=== PATIENT | male | born 1985 | race Caucasian/White ===

== ENCOUNTER → 2020-03-08 15:48 | Outpatient (CLI) | payer BC, SELFPAY ==
[2020-03-08 18:16] LABS: Alanine Aminotransferase 79 U/L (12-78); Albumin Level 4.9 g/dl (3.5-5.0); Albumin/Globulin Ratio 1.6 (1.1-1.8); Alkaline Phosphatase 126 U/L (38-126); Anion Gap 18.9 mEq/L (5-15); Aspartate Amino Transferase 55 U/L (17-59); Bilirubin,Total 0.6 mg/dl (0.2-1.3); Blood Urea Nitrogen 16 mg/dl (9-20); Calcium 10.1 mg/dl (8.4-10.2); Carbon Dioxide 23 mmol/L (22.0-30.0); Chloride 103 mmol/L (98-107); Chol/HDL Ratio 3.2 (1-3.5); Cholesterol 191 mg/dl (140-200); Estimated Glomerular Filt Rate 156 ml/min (>60); GFR (African American) 189 ML/MIN (>60); Globulin 3.1 g/dL (1.3-3.2); Glucose 130 mg/dl (74-100); HDL Cholesterol 59 mg/dl (40-60); Potassium 3.9 mmoL/L (3.5-5.1); Sodium 141 mmol/L (136-145); Triglycerides 104 mg/dl (30-150); VLDL Cholesterol 21 mg/dL (0-40)
[2020-03-08 18:26] LABS: Direct LDL Cholesterol 122.25 mg/dL (100-129)
[2020-03-08 20:11] LABS: Hemoglobin A1C 9.9 % (4.0-6.0)
== END ==
PROVIDERS: Visit Provider Family Medicine
DX: E11.9 Type 2 diabetes mellitus without complications (principal); Z79.4 Long term (current) use of insulin
CPT/HCPCS: 80053; 80061; 83036

== ENCOUNTER → 2020-05-31 17:44 | Outpatient (CLI) | payer BC, SELFPAY ==
[2020-05-31 18:48] LABS: Hemoglobin A1C 10.3 % (4.0-6.0)
== END ==
PROVIDERS: Visit Provider Family Medicine
DX: E13.9 Other specified diabetes mellitus without complications; Z79.4 Long term (current) use of insulin
CPT/HCPCS: 83036

== ENCOUNTER → 2020-09-03 14:17 | Outpatient (CLI) | payer BC, SELFPAY ==
[2020-09-03 15:10] LABS: Creatinine,Urine Random 64 mg/dL (Not Estab.)
[2020-09-03 15:11] LABS: Microalbumin/Creatinine Ratio 13.2
[2020-09-03 15:14] LABS: Basophils # 0.1 K/mm3 (0-0.2); Basophils % 1.3 % (0.1-2.0); Eosinophils # 0.3 K/mm3 (0.0-0.4); Eosinophils % 3.6 % (0.1-12.0); Hematocrit 45.7 % (42.0-52.0); Hemoglobin 15.1 g/dL (14.1-18.0); Lymphocytes # 1.8 K/mm3 (0.7-4.5); Lymphocytes % 25.2 % (10-50); Mean Corpuscular HGB Conc 33.1 g/dL (31.8-35.4); Mean Corpuscular Hemoglobin 29.3 pg (27.0-31.2); Mean Corpuscular Volume 88.4 fl (80-94); Mean Platelet Volume 9.6 fl (7.4-10.4); Monocytes # 0.5 K/mm3 (0.1-1.0); Monocytes % 6.3 % (1.7-9.3); Neutrophils # 4.6 K/mm3 (1.8-7.8); Neutrophils % 63.6 % (37.0-80.0); Platelet Count 234 K/mm3 (142-424); Red Blood Count 5.16 M/mm3 (4.60-6.20); White Blood Count 7.3 K/mm3 (4.8-10.8)
[2020-09-03 15:21] LABS: Alanine Aminotransferase 75 U/L (12-78); Albumin Level 4.5 g/dl (3.5-5.0); Albumin/Globulin Ratio 1.5 (1.1-1.8); Alkaline Phosphatase 111 U/L (38-126); Anion Gap 14.6 mEq/L (5-15); Aspartate Amino Transferase 65 U/L (17-59); Bilirubin,Total 0.4 mg/dl (0.2-1.3); Blood Urea Nitrogen 15 mg/dl (9-20); Calcium 9.7 mg/dl (8.4-10.2); Carbon Dioxide 28 mmol/L (22.0-30.0); Chloride 96 mmol/L (98-107); Cholesterol 190 mg/dl (140-200); Estimated Glomerular Filt Rate 155 ml/min (>60); GFR (African American) 188 ML/MIN (>60); Glucose 377 mg/dl (74-100); HDL Cholesterol 64 mg/dl (40-60); Potassium 4.6 mmoL/L (3.5-5.1); Sodium 134 mmol/L (136-145); Total Protein,Serum 7.5 g/dl (6.3-8.2); Triglycerides 89 mg/dl (30-150); VLDL Cholesterol 18 mg/dL (0-40)
[2020-09-03 15:36] LABS: Hemoglobin A1C 10.8 % (4.0-6.0)
[2020-09-03 15:51] LABS: Thyroid Stimulating Hormone 2.74 uIU/mL (0.465-4.68)
== END ==
PROVIDERS: Visit Provider Family Medicine
DX: E13.9 Other specified diabetes mellitus without complications (principal); I10 Essential (primary) hypertension; Z79.899 Other long term (current) drug therapy
CPT/HCPCS: 80053; 80061; 82043; 82570; 83036; 84443; 85025

== ENCOUNTER → 2021-02-28 13:11 | Outpatient (CLI) | payer BC, SELFPAY ==
[2021-02-28 13:36] LABS: Basophils # 0.1 K/mm3 (0-0.2); Basophils % 1.8 % (0.1-2.0); Eosinophils # 0.3 K/mm3 (0.0-0.4); Eosinophils % 3.2 % (0.1-12.0); Hematocrit 43.8 % (42.0-52.0); Hemoglobin 15.2 g/dL (14.1-18.0); Lymphocytes # 2.2 K/mm3 (0.7-4.5); Lymphocytes % 26.9 % (10-50); Mean Corpuscular HGB Conc 34.7 g/dL (31.8-35.4); Mean Corpuscular Hemoglobin 29.1 pg (27.0-31.2); Mean Corpuscular Volume 83.9 fl (80-94); Mean Platelet Volume 9.7 fl (7.4-10.4); Monocytes # 0.5 K/mm3 (0.1-1.0); Monocytes % 5.8 % (1.7-9.3); Neutrophils # 5.1 K/mm3 (1.8-7.8); Neutrophils % 62.3 % (37.0-80.0); Platelet Count 244 K/mm3 (142-424); Red Blood Count 5.23 M/mm3 (4.60-6.20); Red Cell Distribution Width 14.4 % (11.5-17.5); White Blood Count 8.1 K/mm3 (4.8-10.8)
[2021-02-28 14:18] LABS: Alanine Aminotransferase 39 U/L (12-78); Albumin Level 4.7 g/dl (3.5-5.0); Albumin/Globulin Ratio 1.7 (1.1-1.8); Alkaline Phosphatase 151 U/L (38-126); Anion Gap 16.5 mEq/L (5-15); Aspartate Amino Transferase 23 U/L (17-59); Bilirubin,Total 0.5 mg/dl (0.2-1.3); Blood Urea Nitrogen 15 mg/dl (9-20); Calcium 9.6 mg/dl (8.4-10.2); Carbon Dioxide 29 mmol/L (22.0-30.0); Chloride 97 mmol/L (98-107); Estimated Glomerular Filt Rate 130 ml/min (>60); GFR (African American) 157 ML/MIN (>60); Globulin 2.8 g/dL (1.3-3.2); Potassium 4.5 mmoL/L (3.5-5.1); Sodium 138 mmol/L (136-145); Total Protein,Serum 7.5 g/dl (6.3-8.2)
[2021-02-28 14:27] LABS: Hemoglobin A1C 11.3 % (4.0-6.0)
[2021-02-28 14:45] LABS: Glucose 402 mg/dl (74-100); Lipase < 10 U/L (23-300)
== END ==
PROVIDERS: Visit Provider Family Medicine
DX: E13.9 Other specified diabetes mellitus without complications (principal); Z79.4 Long term (current) use of insulin
CPT/HCPCS: 80053; 83036; 83690; 85025

== ENCOUNTER → 2021-05-30 15:02 | Outpatient (CLI) | payer BC, SELFPAY ==
[2021-05-30 15:11] LABS: Basophils # 0.1 K/mm3 (0-0.2); Basophils % 1.7 % (0.1-2.0); Eosinophils # 0.3 K/mm3 (0.0-0.4); Hematocrit 43.4 % (42.0-52.0); Hemoglobin 14.8 g/dL (14.1-18.0); Lymphocytes % 28.5 % (10-50); Mean Corpuscular HGB Conc 34.2 g/dL (31.8-35.4); Mean Corpuscular Hemoglobin 30.1 pg (27.0-31.2); Mean Corpuscular Volume 88.1 fl (80-94); Mean Platelet Volume 9.1 fl (7.4-10.4); Monocytes # 0.5 K/mm3 (0.1-1.0); Monocytes % 6.9 % (1.7-9.3); Neutrophils # 4.1 K/mm3 (1.8-7.8); Neutrophils % 58.9 % (37.0-80.0); Platelet Count 303 K/mm3 (142-424); Red Blood Count 4.92 M/mm3 (4.60-6.20); Red Cell Distribution Width 14.3 % (11.5-17.5)
[2021-05-30 15:20] LABS: Alanine Aminotransferase 46 U/L (12-78); Albumin Level 4.6 g/dl (3.5-5.0); Albumin/Globulin Ratio 1.4 (1.1-1.8); Alkaline Phosphatase 99 U/L (38-126); Anion Gap 12.6 mEq/L (5-15); Aspartate Amino Transferase 38 U/L (17-59); Bilirubin,Total 0.5 mg/dl (0.2-1.3); Blood Urea Nitrogen 10 mg/dl (9-20); Calcium 9.8 mg/dl (8.4-10.2); Carbon Dioxide 32 mmol/L (22.0-30.0); Chloride 101 mmol/L (98-107); Estimated Glomerular Filt Rate 192 ml/min (>60); GFR (African American) 232 ML/MIN (>60); Globulin 3.2 g/dL (1.3-3.2); Glucose 109 mg/dl (74-100); Potassium 3.6 mmoL/L (3.5-5.1); Sodium 142 mmol/L (136-145); Total Protein,Serum 7.8 g/dl (6.3-8.2)
[2021-05-30 15:23] LABS: Lipase < 10 U/L (23-300)
[2021-05-30 21:33] LABS: Hemoglobin A1C 12.3 % (4.0-6.0)
== END ==
PROVIDERS: Visit Provider Family Medicine
DX: Z00.00 Encounter for general adult medical examination without abnormal findings (principal)
CPT/HCPCS: 80053; 83036; 83690; 85025

== ENCOUNTER → 2021-08-26 14:06 | Outpatient (CLI) | payer BC, SELFPAY | PROVIDERS: Visit Provider Family Medicine | DX: J02.9 Acute pharyngitis, unspecified (principal) ==

== ENCOUNTER → 2021-09-26 16:00 | Outpatient (CLI) | payer BC, SELFPAY ==
[2021-09-26 13:30] LABS: Basophils # 0.2 K/mm3 (0-0.2); Basophils % 1.4 % (0.1-2.0); Eosinophils % 0.3 % (0.1-12.0); Hematocrit 43.4 % (42.0-52.0); Hemoglobin 14.3 g/dL (14.1-18.0); Lymphocytes # 1.3 K/mm3 (0.7-4.5); Lymphocytes % 9.8 % (10-50); Mean Corpuscular Hemoglobin 29.7 pg (27.0-31.2); Mean Corpuscular Volume 90.1 fl (80-94); Mean Platelet Volume 10.4 fl (7.4-10.4); Monocytes # 0.7 K/mm3 (0.1-1.0); Monocytes % 5.3 % (1.7-9.3); Neutrophils # 11.4 K/mm3 (1.8-7.8); Neutrophils % 83.2 % (37.0-80.0); Platelet Count 257 K/mm3 (142-424); Red Blood Count 4.82 M/mm3 (4.60-6.20); Red Cell Distribution Width 13.9 % (11.5-17.5); White Blood Count 13.7 K/mm3 (4.8-10.8)
[2021-09-26 13:36] LABS: Hemoglobin A1C 10.6 % (4.0-6.0)
[2021-09-26 13:40] LABS: Chloride 100 mmol/L (98-107); Potassium 4.2 mmoL/L (3.5-5.1); Sodium 135 mmol/L (136-145)
[2021-09-26 13:42] LABS: Blood Urea Nitrogen 11 mg/dl (9-20); Estimated Glomerular Filt Rate 154 ml/min (>60); GFR (African American) 187 ML/MIN (>60)
[2021-09-26 13:43] LABS: Alanine Aminotransferase 55 U/L (12-78); Albumin/Globulin Ratio 1.8 (1.1-1.8); Alkaline Phosphatase 98 U/L (38-126); Anion Gap 13.2 mEq/L (5-15); Aspartate Amino Transferase 33 U/L (17-59); Bilirubin,Total 0.5 mg/dl (0.2-1.3); Calcium 8.8 mg/dl (8.4-10.2); Carbon Dioxide 26 mmol/L (22.0-30.0); Chol/HDL Ratio 2.4 (1-3.5); Cholesterol 179 mg/dl (140-200); Globulin 2.8 g/dL (1.3-3.2); Glucose 205 mg/dl (74-100); HDL Cholesterol 75 mg/dl (40-60); Total Protein,Serum 7.8 g/dl (6.3-8.2); Triglycerides 78 mg/dl (30-150); VLDL Cholesterol 16 mg/dL (0-40)
[2021-09-26 13:54] LABS: Direct LDL Cholesterol 102.72 mg/dL (100-129)
== END ==
LOC: LAB.DROPOF 09-28 06:22
PROVIDERS: Visit Provider Nurse Practitioner Family
DX: E13.9 Other specified diabetes mellitus without complications (principal); Z79.4 Long term (current) use of insulin
CPT/HCPCS: 80053; 80061; 83036; 85025

== ENCOUNTER → 2021-10-24 16:33 | Outpatient (CLI) | payer BC, SELFPAY ==
[2021-10-24 15:30] LABS: Hemoglobin A1C 9.3 % (4.0-6.0)
[2021-10-24 15:53] LABS: Anion Gap 15.4 mEq/L (5-15); Blood Urea Nitrogen 13 mg/dl (9-20); Calcium 9.3 mg/dl (8.4-10.2); Carbon Dioxide 27 mmol/L (22.0-30.0); Chloride 103 mmol/L (98-107); Estimated Glomerular Filt Rate 190 ml/min (>60); GFR (African American) 230 ML/MIN (>60); Glucose 59 mg/dl (74-100); Potassium 3.4 mmoL/L (3.5-5.1); Sodium 142 mmol/L (136-145)
== END ==
PROVIDERS: Visit Provider Family Medicine
DX: E13.9 Other specified diabetes mellitus without complications (principal); Z79.4 Long term (current) use of insulin
CPT/HCPCS: 80048; 83036

== ENCOUNTER → 2022-02-18 08:49 | Outpatient (CLI) | payer BC, SELFPAY ==
[2022-02-17 17:19] LABS: Hemoglobin A1C 9.9 % (4.0-6.0)
== END ==
PROVIDERS: PCP Family Medicine; Visit Provider Family Medicine
DX: E13.9 Other specified diabetes mellitus without complications (principal); Z79.4 Long term (current) use of insulin
CPT/HCPCS: 83036

== ENCOUNTER → 2022-03-14 09:50 | Outpatient (CLI) | payer BC, SELFPAY ==
[2022-03-14 10:13] LABS: Basophils # 0.2 K/mm3 (0-0.2); Basophils % 2.5 % (0.1-2.0); Eosinophils # 0.2 K/mm3 (0.0-0.4); Eosinophils % 2.9 % (0.1-12.0); Hematocrit 41.6 % (42.0-52.0); Hemoglobin 13.7 g/dL (14.1-18.0); Lymphocytes # 2.5 K/mm3 (0.7-4.5); Lymphocytes % 33.8 % (10-50); Mean Corpuscular Hemoglobin 29.7 pg (27.0-31.2); Mean Corpuscular Volume 90.1 fl (80-94); Mean Platelet Volume 9.5 fl (7.4-10.4); Monocytes # 0.5 K/mm3 (0.1-1.0); Monocytes % 6.7 % (1.7-9.3); Neutrophils # 4.1 K/mm3 (1.8-7.8); Neutrophils % 54.1 % (37.0-80.0); Platelet Count 231 K/mm3 (142-424); Red Blood Count 4.62 M/mm3 (4.60-6.20); Red Cell Distribution Width 13.6 % (11.5-17.5); White Blood Count 7.5 K/mm3 (4.8-10.8)
[2022-03-14 10:34] LABS: Blood Urea Nitrogen 13 mg/dl (9-20); Calcium 9.5 mg/dl (8.4-10.2); Carbon Dioxide 30 mmol/L (22.0-30.0); Chloride 103 mmol/L (98-107); Estimated Glomerular Filt Rate 154 ml/min (>60); GFR (African American) 187 ML/MIN (>60); Glucose 223 mg/dl (74-100); Sodium 139 mmol/L (136-145)
== END ==
LOC: LAB 09:51
PROVIDERS: PCP Family Medicine; Visit Provider Surgery
DX: Z01.812 Encounter for preprocedural laboratory examination (principal); Z20.822 Contact with and (suspected) exposure to COVID-19; K42.9 Umbilical hernia without obstruction or gangrene
CPT/HCPCS: 36415; 80048; 85025; C9803; U0003; U0005

== ENCOUNTER 2022-03-16 06:02 | Day surgery (SDC) | payer BC, SELFPAY ==
[2022-03-13 13:06] VITALS: BMI 31.4
[2022-03-16] VITALS (13 sets, daily range): BP systolic 119–158; BP diastolic 65–98; PULSE 74–92; RESP 16–18; TEMP 36.2–43; O2SAT 91–98
--- NOTE | 2022-03-16 07:19 | HMH.ANESCL ---
[facility] Anesthesia Checklist - Patient Identification Patient Identification: Arm Band, Verbal (Name & ) - Structural Data Admitted From: Home Planned Operative Procedure/s: Umbilical Hernia Repair Consent for Planned Operative Procedure(s) Verified: Yes Verified Documents: Surgical Consent - NPO Status Verified Time NPO: 00:00 - Chart Verification Results Verified: CBC, BMP - Additional verifications Anesthesia Reactions: No Hx Blood Transfusions: No Blood Transfusion Reaction: No - Airway Assessment TMJ Mobility Assessed: Yes Dentition: Good Dentition - Neurological Assessment Level of Consciousness: Awake, Alert, Appropriate - Anesthesia Plan Anesthesia Risk discussed: Yes ASA Class: II Anesthesia Type: General [facility] History I have reviewed the patient's past medical history: Yes Medical History: Reports:: Diabetes Mellitus Type 1, Hypertension Denies:: Cancer, Diabetes Mellitus Type 2, Internal Pacemaker, MRSA, Seizures *Have you ever received a pneumonia vaccine?: No *Have you received a flu vaccine this season?: No Other Medical History: Denies: Blood Transfusion Reaction Anesthesia experience/problems:: none Other Surgeries: Yes: Sinus Surgery. No: Pacemaker Amputation: No Fractures: No - *Social History Last grade of school completed: High school graduate Smoking Status: Never smoker Alcohol Intake: never Substance Use Type: denies use *Occupational Status:: employed Housing: house Household Members: spouse *Travel in the last 8 weeks: None Family Hx:: No significant family history
--- NOTE | 2022-03-16 08:07 | HMH.OPNOTE ---
Date of procedure: 03/16/22 Pre-op Diagnosis:: Umbilical hernia Post-op Diagnosis:: Same Procedure performed:: Open umbilical hernia repair (primary repair with 0 Ethibond) Surgeon:: Dann Pablo MD COLLAR SETTER OVERLOCK:: Andrzej Spence Anesthesia: GETA Estimated blood loss (mL): 10 Operative findings:: 1 cm defect Primary repair with 0 Ethibond (no mesh) Operative note:: After informed consent was obtained the patient was taken to the operating room and placed in the supine position. General anesthesia was induced and his abdomen was prepped and draped in sterile fashion. After infiltration local anesthetic an infraumbilical incision was made. The deep subcutaneous tissue was dissected with combination of electrocautery, sharp dissection, and blunt dissection. The umbilical stump was carefully elevated and then transected with electrocautery. A 1 cm defect was then encountered. Careful dissection sharply around the margin of the fascia was then completed with Metzenbaum scissors. As the tissue was elevated a primary closure was 0 Ethibond was completed. The umbilical stump was reapproximated with 2-0 Vicryl. Skin was then closed with running 4-0 Monocryl. Dressings were applied and patient was transferred to recovery in stable condition after extubation. Condition: stable Disposition: PACU Specimens:: None Complications:: No immediate
--- NOTE | 2022-03-16 08:16 | P.PN_ITS ---
[facility] Anesthesia Record Part I Intake, IV Amount: 1,000 Estimated blood loss (mL): 5 Urine output (mL): 0 Blood Pressure: 157/98 SaO2: 91 Pulse Rate: 92 Respiratory Rate: 16 Temperature: 98.7 F Patient is:: Drowsy, Stable Stable to PACU at:: 08:10
[2022-03-16 08:23] LABS: POC Glucose,Bedside 200 (70-110)
--- NOTE | 2022-03-16 10:05 | HMH.ANESII ---
[facility] Anesthesia Record Part II Discharge Time: 08:46 Destination: Surgical Day Care (OP Surgery) PACU nurse assessment reviewed?: Yes Patient Condition:: Good Anesthesia Complications:: None Swallowing reflex intact?: Yes Cyanosis?: No Blood Pressure: 126/87 Pulse Rate: 77 Temperature: 97.1 F Mental Status: Alert & Oriented Pain level:: 2 Nausea and/or vomitting:: None Intake, IV Amount: 0
[2022-03-16 10:50] LABS: POC Glucose,Bedside 182 (70-110)
== END 2022-03-16 09:31 | disposition home or self-care (01) ==
LOC: OR 06:03
PROVIDERS: PCP Family Medicine; Visit Provider Surgery
PROC: (CPT 49585; principal; 2022-03-16 07:30)
DX: K42.9 Umbilical hernia without obstruction or gangrene (principal); E10.9 Type 1 diabetes mellitus without complications; I10 Essential (primary) hypertension; Z79.4 Long term (current) use of insulin; Z79.899 Other long term (current) drug therapy
CPT/HCPCS: 49585; 82962; 96374; J2405; J2710

== ENCOUNTER → 2022-05-16 13:35 | Outpatient (CLI) | payer BC, SELFPAY ==
[2022-05-16 16:05] LABS: Hemoglobin A1C 9.5 % (4.0-6.0)
== END ==
PROVIDERS: PCP Family Medicine; Visit Provider Family Medicine
DX: E13.9 Other specified diabetes mellitus without complications (principal); Z79.4 Long term (current) use of insulin
CPT/HCPCS: 83036

== ENCOUNTER → 2022-10-24 12:22 | Outpatient (CLI) | payer BC, SELFPAY ==
--- NOTE | 2022-10-24 12:31 | XR_ITS ---
FINAL REPORT CLINICAL HISTORY: pain in lateral foot, evaluate for stress fracture FINDINGS: LEFT FOOT Three views of the left foot demonstrate no acute fracture or dislocation. The joint spaces are preserved. There is a small posterior calcaneal spur. The soft tissues are unremarkable. IMPRESSION: No acute bony abnormality. Reviewed, Interpreted and Dictated by Andrew Wood III, MD Transcribed by Josee Khan Authenticated and [facility]
== END ==
PROVIDERS: PCP Family Medicine; Visit Provider Family Medicine
DX: M79.672 Pain in left foot (principal)
CPT/HCPCS: 73630

== ENCOUNTER → 2023-01-16 23:16 | Outpatient (CLI) | payer BC, SELFPAY ==
[2023-01-16 20:09] LABS: Alanine Aminotransferase 39 U/L (12-78); Albumin/Globulin Ratio 1.6 (1.1-1.8); Alkaline Phosphatase 97 U/L (38-126); Anion Gap 18.5 mEq/L (5-15); Aspartate Amino Transferase 32 U/L (17-59); Bilirubin,Total 0.5 mg/dl (0.2-1.3); Blood Urea Nitrogen 18 mg/dl (9-20); Calcium 9.4 mg/dl (8.4-10.2); Carbon Dioxide 29 mmol/L (22.0-30.0); Chloride 98 mmol/L (98-107); Estimated Glomerular Filt Rate 153 ml/min (>60); GFR (African American) 186 ML/MIN (>60); Globulin 3.1 g/dL (1.3-3.2); Glucose 108 mg/dl (74-100); Potassium 3.5 mmoL/L (3.5-5.1); Sodium 142 mmol/L (136-145); Total Protein,Serum 8.1 g/dl (6.3-8.2)
[2023-01-16 20:13] LABS: Hemoglobin A1C 9.2 % (4.0-6.0)
== END ==
PROVIDERS: PCP Family Medicine; Visit Provider Family Medicine
DX: E13.9 Other specified diabetes mellitus without complications (principal); Z79.4 Long term (current) use of insulin
CPT/HCPCS: 80053; 83036

== ENCOUNTER → 2023-06-29 12:00 | Outpatient (CLI) | payer BC, SELFPAY ==
[2023-06-29 18:58] LABS: Alanine Aminotransferase 35 U/L (12-78); Albumin Level 4.9 g/dl (3.5-5.0); Albumin/Globulin Ratio 1.5 (1.1-1.8); Alkaline Phosphatase 89 U/L (38-126); Aspartate Amino Transferase 30 U/L (17-59); Bilirubin,Total 0.5 mg/dl (0.2-1.3); Blood Urea Nitrogen 11 mg/dl (9-20); Calcium 9.6 mg/dl (8.4-10.2); Carbon Dioxide 29 mmol/L (22.0-30.0); Chloride 100 mmol/L (98-107); Chol/HDL Ratio 2.5 (1-3.5); Cholesterol 185 mg/dl (140-200); Estimated Glomerular Filt Rate 153 ml/min (>60); GFR (African American) 186 ML/MIN (>60); Globulin 3.2 g/dL (1.3-3.2); Glucose 103 mg/dl (74-100); HDL Cholesterol 74 mg/dl (40-60); Sodium 140 mmol/L (136-145); Total Protein,Serum 8.1 g/dl (6.3-8.2); Triglycerides 106 mg/dl (30-150); VLDL Cholesterol 21 mg/dL (0-40)
[2023-06-29 19:09] LABS: Direct LDL Cholesterol 104.58 mg/dL (100-129)
[2023-06-29 20:52] LABS: Hemoglobin A1C 9.5 % (4.0-6.0)
== END ==
LOC: LAB.DROPOF 06-30 00:45
PROVIDERS: PCP Family Medicine; Visit Provider Family Medicine
DX: E11.9 Type 2 diabetes mellitus without complications (principal); Z79.4 Long term (current) use of insulin
CPT/HCPCS: 80053; 80061; 83036

== ENCOUNTER 2023-09-26 21:25 | Outpatient (CLI) | payer OTHER, SELFPAY ==
[2023-09-26 19:38] LABS: Chloride 105 mmol/L (98-107); Potassium 3.8 mmoL/L (3.5-5.1); Sodium 141 mmol/L (136-145)
[2023-09-26 19:40] LABS: Hemoglobin A1C 8.9 % (4.0-6.0)
[2023-09-26 19:41] LABS: Alanine Aminotransferase 27 U/L (12-78); Albumin Level 4.4 g/dl (3.5-5.0); Albumin/Globulin Ratio 1.8 (1.1-1.8); Alkaline Phosphatase 77 U/L (38-126); Anion Gap 9.8 mEq/L (5-15); Aspartate Amino Transferase 27 U/L (17-59); Bilirubin,Total 0.3 mg/dl (0.2-1.3); Blood Urea Nitrogen 9 mg/dl (9-20); Calcium 8.9 mg/dl (8.4-10.2); Carbon Dioxide 30 mmol/L (22.0-30.0); Estimated Glomerular Filt Rate 188 ml/min (>60); GFR (African American) 228 ML/MIN (>60); Globulin 2.5 g/dL (1.3-3.2); Glucose 67 mg/dl (74-100); Total Protein,Serum 6.9 g/dl (6.3-8.2)
== END 2023-09-26 23:59 ==
LOC: LAB.DROPOF 21:26
PROVIDERS: PCP Family Medicine; Visit Provider Family Medicine
DX: E11.9 Type 2 diabetes mellitus without complications (principal); Z79.4 Long term (current) use of insulin; Z79.899 Other long term (current) drug therapy
CPT/HCPCS: 80053; 83036

== ENCOUNTER 2024-04-28 09:19 | Outpatient (CLI) | payer OTHER, SELFPAY ==
[2024-04-25 19:00] LABS: Chol/HDL Ratio 2.9 (1-3.5); Cholesterol 174 mg/dl (140-200); HDL Cholesterol 61 mg/dl (40-60); Triglycerides 48 mg/dl (30-150); VLDL Cholesterol 10 mg/dL (0-40)
[2024-04-25 19:23] LABS: Direct LDL Cholesterol 101.33 mg/dL (100-129)
== END 2024-04-28 23:59 | disposition home or self-care (01) ==
LOC: LAB.DROPOF 10:55
PROVIDERS: PCP Family Medicine; Visit Provider Family Medicine
DX: E11.9 Type 2 diabetes mellitus without complications (principal); Z79.4 Long term (current) use of insulin
CPT/HCPCS: 80061

== ENCOUNTER 2025-06-15 07:46 | Outpatient (CLI) | payer OTHER, SELFPAY ==
--- OUTSIDE RECORDS SUMMARY | 2025-05-27 08:35 | XMS_ITS | Encounter Summary ---
Author Organization [place] [address] Care Team Providers Care Hook And Eye Machine Operator Name Role Phone Unavailable Primary Care Provider Unavailabl e Reason for Visit * Reason Comments Diabetes Encounter Details Date Type Department Care Team (Latest Contact Info) Description 05/27/2025 9:35 AM EDT Office Visit [facility] [address] [facility] [address] [place] [address] Elroy Dalton, LOIS [address] [place] [address] Type 1 diabetes mellitus without retinopathy (HCC) [...] , Rfl: glucagon (BAQSIMI) 3 mg/actuation Nasl [place], Non-Aerosol, 1 mg by Nasal route as [...] meals)., Disp: 15 mL, Rfl: 5 Insulin Holden, Disposable, (BRANDY PEN NEEDLE) 32 gauge x [...] Care Team (Late st Contact Info) Description 06/02/2026 10:35 AM EDT Office Visit [facility] [address] [place] [address] Elroy Dalton, LOIS [address] [place] [address] documented as of this encounter Visit Diagnoses [...]
--- OUTSIDE RECORDS SUMMARY | 2025-06-15 13:45 | XMS_ITS | Encounter Summary ---
Author Organization [facility] Address [address] [place] [address] Care Team Providers Care It Manager Name Role Phone Unavailable Primary Care Provider Unavailabl e Reason for Visit * Reason Comments Pain Encounter Details Date Type Department Care Team (Late st Contact Info) Description 06/15/2025 1:45 PM EST Office Visit [facility] [place] [phone] Terry Kirk MD [address] [place] [address] Strain of calf muscle, right, initial encounter (Primary Dx); Rupture of medial head of gastrocnemius, right, initial encounter Social History Tobacco Use Types Packs/Day Years Used Date Smoking Tobacco: Former Cigarettes Smokeless Tobacco: Former Sex and Gender Information Value Date Recorded Sex Assigned at Not on file Legal Sex Male 2:59 PM EDT Gender Identity Not on file Sexual Orientation Not on file documented as of this encounter Progress Notes * Terry Kirk MD - 06/15/2025 1:45 PM EST Brandy Kirk MD Office visit for Name: Pranay Abdi Patton ADDRESS: [address] [place], [place] [id number] : 1985 AGE: 39 y.o. Reason for Visit right calf pain Primary Care Physician: No primary care provider on file. Date of Consultation: 06/15/2025 History of Presenting Illness Pranay Patton is a(n) 39 y.o. male being seen in consultation for right calf pain. 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 Patient states that 9 days ago he was mowing in his yard and then transmission went out on his truck and he was trying to push it up and felt a pop in his right calf as he pushed it up a small hill. He since then had swelling tenderness in the calf and there was concern his got a knee brace for which did not help. He has no numbness tingling. Review of Systems: See intake sheet. Medications:Prescriptions Prior to Admission[1] Allergies:Allergies[2] Medical History:Past Medical History[3] Surgical History:Surgical History[4] Family History:Family History[5] Social History:Social History[6] Objective: Physical Examination: There were no vitals taken for this visit. General: Well-appearing with appropriate affect. Appears stated age. Head: Normocephalic atraumatic Ears and Nose: External appearance is normal. Skin: Warm and dry. Color natural. Neuro: Alert and orientated to person,place and time. Pulmonary: Respirations are unlabored and regular. Chest expansion appears symmetic. Cardiovascular: No signs of peripheral edema. Psychiatric: Mood is appropriate for circumstances. Ortho Exam: Clinically his affected right Is mildly swollen he has no pain in the lateral head of the gastroc the medial head is reproductive the pain in the central part Achilles intact negative Soni test. Ankle movements full no posterior knee pain. Distal motor or sensory intact Imaging results: X-rays None today Assessment and Plan: Assessment: Right medial calf rupture Recommendations: I went over this with him. We discussed placing him into a walking boot but he cannot wear this at work. Will have him get some compression stockings moderate activities he understands this will takeabout 3 to 6 weeks to quiet down. Open follow-up with our sports nonoperative service in about 2 weeks clinical check. Again no indication for a venous Doppler based on the history and swelling. DME Summary No orders found for display Parts of this note may have been created by a chart review, combined by taking my own patient history. The patient was physically seen and examined by myself, including a personal review of images, tests, and formation of the impression and plan. This dictation was performed with a verbal recognition program and it was checked for errors. It is possible that there are still dictated errors withinthis office note, if so please bring this to my attention for an addendum. All effort was made to ensure that the office note was accurate. Danny Kirk MD [1] (Not in a hospital admission) [2] Allergies Allergen Reactions Metformin Other (See Comments) Penicillins Anaphylaxis Hydrocodone Hives [3] Past Medical History: Diagnosis Date Hyperlipidemia [4] No past surgical history on file. [5] Family History Problem Relation Age of Onset Blindness Neg Hx Glaucoma Neg Hx Macular Degen Neg Hx [6] Social History Socioeconomic History Marital status: Tobacco Use Smoking status: Former Types: Cigarettes Smokeless tobacco: Former Vaping Use Vaping status: Never Used documented in this encounter Plan of Treatment Upcoming Encounters Date Type Department Care Team (Late st Contact Info) Description 06/02/2026 10:35 AM EDT Office Visit [facility] [address] [facility] [address] [place] [address] Elory Dalton, OD [address] [place] [address] documented as of this encounter Visit Diagnoses Diagnosis Strain of calf muscle, right, initial encounter- Primary Rupture of medial head of gastrocnemius, right, initial encounter documented in this encounter
[2025-06-15 15:26] LABS: D-Dimer 0.62 ug/mL (0.0-0.5)
[2025-06-15 17:06] LABS: Alanine Aminotransferase 29 U/L (12-78); Albumin Level 4.5 g/dl (3.5-5.0); Albumin/Globulin Ratio 1.4 (1.1-1.8); Alkaline Phosphatase 89 U/L (38-126); Anion Gap 11.6 mEq/L (5-15); Aspartate Amino Transferase 21 U/L (17-59); Bilirubin,Total 0.5 mg/dl (0.2-1.3); Blood Urea Nitrogen 8 mg/dl (9-20); Calcium 9.3 mg/dl (8.4-10.2); Carbon Dioxide 31 mmol/L (22.0-30.0); Chloride 99 mmol/L (98-107); Cholesterol 183 mg/dl (140-200); Creatinine,Serum 0.60 mg/dl (0.66-1.25); Estimated Glomerular Filt Rate 152 ml/min (>60); GFR (African American) 183 ML/MIN (>60); Globulin 3.3 g/dL (1.3-3.2); Glucose 160 mg/dl (74-100); HDL Cholesterol 64 mg/dl (40-60); Potassium 3.6 mmoL/L (3.5-5.1); Sodium 138 mmol/L (136-145); Total Protein,Serum 7.8 g/dl (6.3-8.2); Triglycerides 66 mg/dl (30-150)
[2025-06-15 18:46] LABS: Hepatitis C Ab Qual. W/ RFX NEGATIVE (Negative)
[2025-06-16 08:12] LABS: Hepatitis B Surface Antigen Negative (Negative); Testosterone,Total 447 ng/dL (264-916)
--- OUTSIDE RECORDS SUMMARY | 2025-06-17 07:48 | XMS_ITS | Clinical Summary ---
Author Organization [facility] Address [address] [facility] [address] [place] [phone] Phone Care Team Providers Care Pipe Fittings Molder Name Role Phone Unavailable Primary Care Provider [...] 4 Active glucagon (BAQSIMI) 3 mg/actuation Nasl [place], Non-Aerosol 1 mg by Nasal route as [...] meals). 15 mL 5 4 Active Insulin [place], Disposable, (BRANDY PEN NEEDLE) 32 gauge x [...] & Plan (07/21/2024 11:50 AM EST): Orders: [place] CONTINUOUS GLUCOSE MONITORING ANALYSIS I&R CORTISOL SALIVA-REF [...] Office Visit [facility] [address] [phone] Terry Kirk MD Strain of calf muscle, right, initial encounter (Primary Dx); Rupture of medial head of gastrocnemius, right, initial encounter 05/27/2025 9:35 AM EDT Office Visit [facility] [address] [place] [address] [address] [place] [address] Elroy Dalton, LOIS Type 1 [...] [facility] [address] [place] [phone] Elroy Dalton, OD [address] [place] [address] Health Maintenance Due Date Last Done Comments [...] Albumin <12.0 mg/L 07/21/2024 5:22 PM EST [facility] Urine Creatinine 152.3 mg/dL 07/21/20 24 5:22 PM EST [facility] Albumin/Creat Ratio 07/21/2024 5:22 PM EST [facility] Comment: Because the albumin level is below [...] Todd MD URINE ORDERABLES Final Res ult [facility] [address] [facility] , [place] [address] * LIPID PANEL REFLEX (07/21/2024 12:20 PM EST) Cholesterol 160 <200 mg/dL 07/21/2024 8:02 PM EST [facility] Comment: < 200 Desirable 200 - 239 Borderline High >= 240 High Triglyceride 42 <150 mg/dL 07/21/2024 8:02 PM EST [facility] Comment: < 150 Normal 150 - 199 Borderline High 200 - 499 High >= 500 Very High HDL 59 >=40 mg/dL 07/21/2024 8:02 PM EST [facility] Comment: > 60 Optimal 40 - 60 Acceptable < 40 Low LDL Calculated 92 <100 mg/dL 07/21/2024 8:02 PM EST [facility] Non-HDL-C Calculated 101 <=129 mg/dL 07/21/2024 8:02 PM EST [facility] Comment: <130 Desirable 130-159 Above Desirable 160-189 Borderline High 190-219 High >= 220 Very High Fasting Specimen? Yes None 024 8:02 PM EST [facility] Blood VENOUS BLOOD / Unknown Venipuncture / Unknown 07/21/2024 12:20 PM EST 07/21/2024 12:20 PM EST Jeramy Todd MD CHEMISTRY ORDERABLES Final Result [facility] [address] [facility] , [address] [place] [phone] [facility] [address] [place] [address] * (ABNORMAL) COMPREHENSIVE METABOLIC PANEL (07/21/2024 12:20 PM EST) Sodium 140 136 - 145 mmol/L 07/21/2024 8:02 PM EST [facility] Potassium 3.6 3.5 - 5.0 mmol/L 07/21/2024 8:02 PM EST [facility] Chloride 104 98 - 107 mmol/L 07/21/2024 8:02 PM EST [facility] Total CO2 28 22 - 29 mmol/L 07/21/2024 8:02 PM EST [facility] Anion Gap 8 7 - 16 mmol/L 07/21/2024 8:02 PM EST [facility] Calcium 9.5 8.6 - 10.4 mg/dL 07/21/2024 8:02 PM EST [facility] Glucose Lvl 68(L) 70 - 99 mg/dL 07/21/2024 8:02 PM EST [facility] BUN 20 6 - 20 mg/dL 07/21/2024 8:02 PM EST [facility] Creatinine 0.65(L) 0.67 - 1.30 mg/dL 07/21/2024 8:02 PM EST [facility] Albumin 4.5 3.5 - 5.2 gm/dL 07/21/2024 8:02 PM EST [facility] Total Protein 7.5 6.4 - 8.3 gm/dL 07/21/2024 8:02 PM EST [facility], [facility] Bili Total 0.3 0.2 - 1.4 mg/dL 07/21/2024 8:02 PM EST [facility], [facility] ALT 20 <=41 U/L 07/21/2024 8:02 PM EST [facility], [facility] AST 17 <=40 U/L 07/21/2024 8:02 PM EST [facility], [facility] Alk Phos 66 40 - 129 U/L 07/21/2024 8:02 PM EST [facility], [facility] eGFR (CKD-EPIcr 2020) 124 >=60 mL/min/1.7 3 m2 07/21/2024 8:02 PM EST [facility] Comment:Estimated GFR was ca lculated using the CKD-EPIcr (2020) equation refit without race. The equation is recommended by the National Kidney Foundation - [place] [employer] of Nephrology Task Force. Blood VENOUS BLOOD / Unknown Venipuncture / Unknown 07/21/2024 12:20 PM EST 07/21/2024 12:20 PM EST Jeramy Todd MD CHEMISTRY ORDERABLES Final Result [facility] 1 [facility], [place] [address] [facility] [address] [place] [address] * (ABNORMAL) POCT GLYCATED HEMOGLOBIN, TOTAL (07/21/2024 11:05 AM EST) Hemoglobin A1C 7.9(A) 4 - 6 % SEP OFFICE Lot Number SEP OFFICE Expiration Date SEP OFFICE SeriAl # SEP OFFICE 07/21/2024 11:0 5 AM EST Jeramy Todd MD POINT OF CARE TEST ORDERAB LES Final Result SEP OFFICE from Last 3 Months or Most Recently Relevant to Health Maintenance Insurance [employer]
== END 2025-06-15 23:59 ==
LOC: LAB.DROPOF 06-17 07:46
PROVIDERS: PCP Family Medicine; Visit Provider Family Medicine
DX: E11.9 Type 2 diabetes mellitus without complications (principal); I10 Essential (primary) hypertension; Z11.59 Encounter for screening for other viral diseases
CPT/HCPCS: 80053; 80061; 82043; 82570; 84403; 85378; 86803; 87340; 87389

== ENCOUNTER 2025-06-16 10:42 | Outpatient (CLI) | payer OTHER, SELFPAY ==
--- OUTSIDE RECORDS SUMMARY | 2025-05-27 08:35 | XMS_ITS | Encounter Summary ---
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 Social History Tobacco Use Types Packs/Day Years Used Date Smoking Tobacco: Former Cigarettes Smokeless Tobacco: Former Sex and Gender Information Value Date Recorded Sex Assigned at Not on file Legal Sex Male 2:59 PM EDT Gender Identity Not on file Sexual Orientation Not on file documented as of this encounter Progress Notes * Elroy Dalton, LOIS - 05/27/2025 1:01 PM EDTAssociated Problem(s): 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 AM discomfort could be related to dry eye/allergies He does endorse increase discomfort/puffiness after mowing the lawn consider allergy medication/allergy drops use artificial tears prn in AM * Elroy Dalton, LOIS - 05/27/2025 1:01 PM EDTAssociated Problem(s): Type 1 diabetes mellitus without retinopathy (HCC) No retinopathy OU continue to monitor yearly encouraged him to continue working to improve his sugars/A1C * Elroy Dalton, OD - 05/27/2025 9:35 AM EDT Optometry Assessment and Plan: Problem List Type 1 diabetes mellitus without retinopathy (HCC) - Primary (Chronic) Current Assessment & Plan No retinopathy OU continue to monitor yearly encouraged him to continue working to improve his sugars/A1C 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 Return in about 1 year (around 05/27/2026) for Diabetic Eye Exam. Subjective: Patient ID: Pranay Patton is a 39 y.o. male. Chief Complaint Patient presents with Diabetes Lab Results Component Value Date HGBA1C 7.9 (A) 07/21/2024 HPI Patient presents today for a diabetic eye exam. HGBA1C 7.9 (A) 07/21/2024 His blood sugar between 70-180. He reports no noticeable changes in vision since his previous exam. He experiences eye pain, a burning sensation that usually occurs in the mornings. He does not complain of flashes of light or floaters. He does not use eye drops. Past Medical History[1] Surgical History[2] Family History[3] Social History Socioeconomic History Marital status: Spouse name: Not on file Number of children: Not on file Years of education: Not on file Highest education level: Not on file Occupational History Not on file Tobacco Use Smoking status: Former Types: Cigarettes Smokeless tobacco: Former Vaping Use Vaping status: Never Used Substance and Sexual Activity Alcohol use: Not on file Drug use: Not on file Sexual activity: Not on file Other Topics Concern Not on file Social History Narrative Not on file Social Drivers of Health Financial Resource Strain: Not on file Food Insecurity: Not on file Transportation Needs: Not on file Physical Activity: Not on file Stress: Not on file Social Connections: Not on file Intimate Partner Violence: Not on file Housing Stability: Not on file ROS Positive for: Endocrine, Eyes Negative for: Constitutional, Gastrointestinal, Neurological, Skin, Genitourinary, Musculoskeletal,HENT, Cardiovascular, Respiratory, Psychiatric, Allergic/Imm, Heme/Lymph Current Medications[4] Objective: Eye Exam: Base Eye Exam Visual Acuity (Snellen - Linear) Right Left Dist sc 20/25 20/20 Tonometry (I-care, 9:59 AM) Right Left Pressure 18 16 Pupils Dark Light Shape React APD Right 3.5 2 Round Brisk None Left 3.5 2 Round Brisk None Visual Hawley Right Left Full Full Extraocular Movement Right Left Full, Ortho Full, Ortho Neuro/Psych Oriented x3: Yes Mood/Affect: Normal Dilation Both eyes: 1%/0.25% Paremyd @ 10:00 AM Edited by: Dannie Lim, COA; Elroy Dalton, LOIS Slit Lamp and Fundus Exam External Exam Right Left External Normal Normal Slit Lamp Exam Right Left Lids/Lashes Normal Normal Conjunctiva/Sclera White and quiet White and quiet Cornea Clear Clear Anterior Chamber Deep and quiet Deep and quiet Iris Normal Normal Lens Clear Clear Vitreous Normal Normal Fundus Exam Right Left Disc Normal Normal C/D Ratio 0.30 0.30 Macula flat flat Vessels Normal Normal Periphery no HTD no HTD Edited by: Elroy Dalton, LOIS Procedure: Assessment and Plan: (see top of note for details) [1] Past Medical History: Diagnosis Date Hyperlipidemia [2] History reviewed. No pertinent surgical history. [3] Family History Problem Relation Age of Onset Blindness Neg Hx Glaucoma Neg Hx Macular Degen Neg Hx [4] Current Outpatient Medications: DEXCOM G7 SENSOR Misc Device, APPLY ONE SENSOR TO SKIN ONCE EVERY 10 DAYS TO MONITOR BLOOD GLUCOSE,Disp: , Rfl: glucagon (BAQSIMI) 3 mg/actuation Nasl Sedan, Non-Aerosol, 1 mg by Nasal route as needed (hypoglyemia)., Disp: 1 Each, Rfl: 3 insulin glargine (LANTUS SOLOSTAR U-100 INSULIN) 100 unit/mL (3 mL) SubQ Insulin Pen, Subcutaneous (Inject under the skin) 45 Units every evening., Disp: 15 mL, Rfl: 5 insulin lispro (HUMALOG) 100 unit/mL SubQ Insulin Pen, Subcutaneous (Inject under the skin) 15 Units 3 times daily (before meals)., Disp: 15 mL, Rfl: 5 Insulin Ethel, Disposable, (BRANDY PEN NEEDLE) 32 gauge x 5/32 Misc Needle, Subcutaneous (Inject under the skin) 1 Each 4 times daily (before meals and nightly)., Disp: 100 Each, Rfl: 11 Insulin Syringe-Needle U-100 1/2 mL 30 x 3/8 Misc Syringe, For use with Semaglutide, Disp: 100 Each, Rfl: 0 lipase/protease/amylase (CREON ORAL), Take by mouth., Disp: , Rfl: lisinopriL (PRINIVIL;ZESTRIL) 40 mg Oral Tablet, Take 40 mg by mouth daily., Disp: , Rfl: traMADoL (ULTRAM) 50 mg Oral Tablet, Take 50 mg by mouth 2 times daily as needed. for pain, Disp: ,Rfl: documented in this encounter Miscellaneous Notes * Patient Instructions - Dannie Lim COA - 05/27/2025 9:35 AM EDT Follow up as directed. documented in this encounter Plan of Treatment Upcoming Encounters Date Type Department Care Team (Late st Contact Info) Description 06/30/2025 10:45 AM EST Office Visit 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 documented in this encounter Eye Exam Visual Acuity (Snellen - Linear) Right eye Left eye Dist sc 20/25 20/20 Tonometry (I-care, 9:59 AM) Right eye Left eye Pressure 18 16 Pupils Dark Light Shape React APD Right eye 3.5 2 Round Brisk None Left eye 3.5 2 Round Brisk None Visual Hawley Right eye Left eye Full Full Extraocular Movement Right eye Left eye Full, Ortho Full, Ortho Neuro/Psych Oriented x3: Yes Mood/Affect: Normal Dilation Both eyes: 1%/0.25% Paremyd @ 10:00 AM External Exam Right eye Left eye External Normal Normal Slit Lamp Exam Right eye Left eye Lids/Lashes Normal Normal Conjunctiva/Sclera White and quiet White and noel et Cornea Clear Clear Anterior Chamber Deep and quiet Deep and quiet Iris Normal Normal Lens Clear Clear Anterior Vitreous Normal Normal Fundus Exam Right eye Left eye Disc Normal Normal C/D Ratio 0.30 0.30 Macula flat flat Vessels Normal Normal Periphery no HTD no HTD
--- OUTSIDE RECORDS SUMMARY | 2025-06-15 13:45 | XMS_ITS | Encounter Summary ---
Author Organization [facility] Address [address] [place] [address] Care Team Providers Care Auto Wash Buffer Name Role Phone Unavailable Primary Care Provider Unavailabl e Reason for Visit * Reason Comments Pain Encounter Details Date Type Department Care Team (Late st Contact Info) Description 06/15/2025 1:45 PM EST Office Visit [facility] [place] [phone] Terry Kirk MD [address] [place] [address] Strain of calf muscle, right, initial encounter [...] visit for Name: Pranay Abdi Patton ADDRESS: [address] [place], [place] [id number] : 1985 AGE: 39 y.o. Reason for Visit right calf pain Primary Care Physician: No primary care provider on file. Date of Consultation: 06/15/2025 History of Presenting Illness Pranay Patton is a(n) 39 y.o. male being seen in consultation for right calf pain. 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 Patient states that 9 days ago he [...] Description 06/30/2025 10:45 AM EST Office Visit [facility] [address] [place] [address] Caren Mendoza DO [address] [place] [id number] 06/02/2026 10:35 AM EDT Office Visit [facility] [address] [facility] [address] [place] [address] Elroy Dalton OD [address] [place] [address] documented as of this encounter Visit Diagnoses Diagnosis Strain of calf muscle, right, initial encounter- Primary Rupture of medial head of gastrocnemius, right, initial encounter documented in this encounter
--- NOTE | 2025-06-16 10:30 | CA_ITS ---
FINAL REPORT TECHNIQUE: Multiple transverse and longitudinal images were performed of the right femoral-popliteal deep venous system with augmentation and compression maneuvers. CLINICAL HISTORY: PT FELT A POP IN BACK OF CALF SEVERAL DAYS AGO,PAIN RIGHT CALF FINDINGS: Right lower extremity duplex ultrasound demonstrates normal flow in the deep venous system. There is no abnormal echogenicity to suggest thrombus. There is normal compression and augmentation. IMPRESSION: No evidence of right DVT. Reviewed, Interpreted and Dictated by Mary Faust MD Transcribed by Diamond Pineda Authenticated and [facility]
--- OUTSIDE RECORDS SUMMARY | 2025-06-16 10:55 | XMS_ITS | Clinical Summary ---
Author Organization [facility] Diabetes [facility] Address [address] [facility] [address] [place] [phone] Phone Care Team Providers Care Retail Director Name Role Phone Unavailable Primary Care Provider Unavailabl e Allergies Active Allergy Reactions Criticality Noted Date Comments Hydrocodone Hives 05/16/2022 Metformin Other (See Comments) High 05/16/2022 Penicillins Anaphylaxis High 05/16/2022 Medications DEXCOM G7 SENSOR Misc Device APPLY ONE SENSOR TO SKIN ONCE EVERY 10 DAYS TO MONITOR BLOOD GLUCOSE 4 Active lisinopriL (PRINIVIL;ZESTR IL) 40 mg Oral Tablet Take 40 mg by mouth daily. 2 Active traMADoL (ULTRAM) 50 mg Oral Tablet Take 50 mg by mouth 2 times daily as needed. for pain Active lipase/protease /amylase (CREON ORAL) Take by mouth. Activ e Insulin Syringe-Needle U-100 1/2 mL 30 x 3/8 Misc Syringe For use with Semaglutide 100 Each 4 Active glucagon (BAQSIMI) 3 mg/actuation Nasl [place], Non-Aerosol 1 mg by Nasal route as needed (hypoglyemia). 1 Each 3 4 Active insulin glargine (LANTUS SOLOSTAR U-100 INSULIN) 100 unit/mL (3 mL) SubQ Insulin Pen Subcutaneous (Inject under the skin) 45 Units every evening. 15 mL 5 4 Active insulin lispro (HUMALOG) 100 unit/mL SubQ Insulin Pen Subcutaneous (Inject under the skin) 15 Units 3 times daily (before meals). 15 mL 5 4 Active Insulin [place], Disposable, (BRANDY PEN NEEDLE) 32 gauge x 5/32 Misc Needle Subcutaneous (Inject under the skin) 1 Each 4 times daily (before meals and nightly). 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 Stressed the importance of continuing to follow the advice of patient's PCP and other providers coordinating care. Patient has no evidence of diabetic retinopathy at this time and will follow up for next diabetic eye exam. Patient was instructed to return immediately with any changes in vision. 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 interested in insulin pump therapy Check C-peptide Insulin regimen adjusted, has coverage issues with getting long acting insulin, didn;t tolerate MF previously Humulin R insulin adjusted to 50 units am, 35 units pm Referral to Ophthalmology for annual eye exam Referral to CDE to initiate insulin pump therapy Glucagon prescribed for hypoglycemic emergencies. Will benefit from diabetes education as his meals are carb heavy Hyperlipidemia associated with type 2 diabetes nehemiah zhou 04/21/2024 Assessment & Plan (04/21/2024 2:11 PM EDT): Recheck lipid profile Encounters Date Type Department Care Team Description 06/15/2025 1:45 PM EST Office Visit [facility] [address] [phone] Terry Kirk MD Strain of calf muscle, right, initial encounter (Primary Dx); Rupture of medial head of gastrocnemius, right, initial encounter 05/27/2025 9:35 AM EDT Office Visit [facility] [address] [place] [address] [address] [place] [address] Elroy Dalton, LOIS Type 1 diabetes mellitus without retinopathy (HCC) (Primary Dx); 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 from Last 3 Months Medical History Medical History Date Comments Hyperlipidemia Family History Medical History Relation Name Comments Blindness Neg Hx Glaucoma Neg Hx Macular Degen Neg Hx Social History Tobacco Use Types Packs/Day Years Used Date Smoking Tobacco: Former Cigarettes Smokeless Tobacco: Former Tobacco Cessation:Counseling Given: Not Answered Sex and Gender Information Value Date Recorded Sex Assigned at Not on file Legal Sex Male 2:59 PM EDT Gender Identity Not on file Sexual Orientation Not on file Last Filed Vital Signs Vital Sign Reading Time Taken Comments Blood Pressure 124/84 07/21/2024 11:00 AM EST Pulse 91 07/21/2024 11:00 AM EST Temperature - - Respiratory Rate 18 07/21/2024 11:0 0 AM EST Oxygen Saturation - - Inhaled Oxygen Concentration - - Weight 117.1 kg (258 lb 3.2 oz) 024 11:00 AM EST Height 188 cm (6' 2 ) 07/21/2024 11:00 AM EST Body Mass Index 33.15 07/21/2024 11:00 AM EST Plan of Treatment Upcoming Encounters Date Type Department Care Team (Late st Contact Info) Description 06/30/2025 10:45 AM EST Office Visit [facility] [address] [place], [place] [id number] Caren Mendoza DO [address] [place], [place] [phone] 06/02/2026 10:35 AM EDT Office Visit [facility] [address] [place] [address] Elroy Dalton, OD [address] [place] [address] Health Maintenance Due Date Last Done Comments Annual Wellness Exam 1990 Hepatitis B Vaccine (1 of 3 - 19+ 3-dose series) 2006 Pneumococcal Vaccine 0-49 (2 of 2 - PCV) 04/06/2018 04/06/2017 Hemoglobin A1c 01/19/2025 07/21/2024, 04/21/2024 COVID-19 Vaccine (3 - 2024-2 6 season) 2025 05/26/2021, 05/05/2021 Influenza Vaccine (#1) 2025 , 05/31/2020 Kidney Health: eGFR 07/21/2025 07/21/2024 Kidney Health: uACR 07/21/2025 07/21/2024 Lipids 07/21/2025 07/21/2024 DTaP/TDaP/Td (3 - Td or Tdap) 04/06/2027, 03/07/2002 Diabetic Eye Exam 05/27/2027 05/27/2025 Meningococcal B Vaccine Aged Out No l onger eligible based on patient's age to complete this topic Procedures Procedure Name Priority Date/Time Associated Diagnosis Comments ALBUMIN/CREATININE RATIO, RANDOM URINE Routine 07/21/2024 1:44 PM EST Type 1 diabetes mellitus with hyperglycemia (HCC) COMPREHENSIVE METABOLIC PANEL Routine 07/21/2024 12:20 PM EST Type 1 diabetes mellitus with hyperglycemia (HCC) LIPID PANEL REFLEX Routine 07/21/2024 12 :20 PM EST Type 1 diabetes mellitus with hyperglycemia (HCC) Hyperlipidemia associated with type 2 diabetes mellitus (HCC) POCT GLYCATED HEMOGLOBIN, TOTAL Routine 07/21/2024 11:05 AM EST Type 1 diabetes mellitus with hyperglycemia (HCC) Encounter for screening for endocrine disorder Obesity, Class I, BMI 30-34.9 from Last 3 Months or Most Recently Relevant to Health Maintenance Results * MICROALBUMIN/CREATININE RATIO URINE (07/21/2024 1:44 PM EST) Urine Albumin <12.0 mg/L 07/21/2024 5:22 PM EST [facility] Urine Creatinine 152.3 mg/dL 07/21/20 5:22 PM EST [facility] Ur Albumin/Creat Ratio 07/21/2024 5:22 PM EST [facility] Comment: Because the albumin level is below the level of detection in this urine specimen, the laboratory is unable to calculate a reliable albumin/creatinine ratio. Microalbuminuria is unlikely if the urine albumin concentration is less than 20- 30 mg/L in a random specimen. Urine URINE SPECIMEN COLLECTION / Unknown 07/21/2024 1:44 PM EST 07/21/2024 1:44 PM EST us Jeramy Todd MD URINE ORDERABLES Final Res ult [facility] , [place] [address] * LIPID PANEL REFLEX (07/21/2024 12:20 PM EST) Cholesterol 160 <200 mg/dL 07/21/2024 8:02 PM EST [facility] Comment: < 200 Desirable 200 - 239 Borderline High >= 240 High Triglyceride 42 <150 mg/dL 07/21/2024 8:02 PM EST [facility] Comment: < 150 Normal 150 - 199 Borderline High 200 - 499 High >= 500 Very High HDL 59 >=40 mg/dL 07/21/2024 8:02 PM EST [facility] Comment: > 60 Optimal 40 - 60 Acceptable < 40 Low LDL Calculated 92 <100 mg/dL 07/21/2024 8:02 PM EST [facility] Non-HDL-C Calculated 101 <=129 mg/dL 07/21/2024 8:02 PM EST [facility] Comment: <130 Desirable 130-159 Above Desirable 160-189 Borderline High 190-219 High >= 220 Very High Fasting Specimen? Yes None 024 8:02 PM EST [facility] Blood VENOUS BLOOD / Unknown Venipuncture / Unknown 07/21/2024 12:20 PM EST 07/21/2024 12:20 PM EST Jeramy Todd MD CHEMISTRY ORDERABLES Final Result [facility] [address] [facility], [place] [address] [facility] [address] [place] [address] * (ABNORMAL) COMPREHENSIVE METABOLIC PANEL (07/21/2024 12:20 PM EST) Sodium 140 136 - 145 mmol/L 07/21/2024 8:02 PM EST [facility] Potassium 3.6 3.5 - 5.0 mmol/L 07/21/2024 8:02 PM EST [facility] Chloride 104 98 - 107 mmol/L 07/21/2024 8:02 PM EST [facility] Total CO2 28 22 - 29 mmol/L 07/21/2024 8:02 PM EST [facility] Anion Gap 8 7 - 16 mmol/L 07/21/2024 8:02 PM EST [facility] Calcium 9.5 8.6 - 10.4 mg/dL 07/21/2024 8:02 PM EST [facility] Glucose Lvl 68(L) 70 - 99 mg/dL 07/21/2024 8:02 PM EST [facility] BUN 20 6 - 20 mg/dL 07/21/2024 8:02 PM EST [facility] Creatinine 0.65(L) 0.67 - 1.30 mg/dL 07/21/2024 8:02 PM EST [facility] Albumin 4.5 3.5 - 5.2 gm/dL 07/21/2024 8:02 PM EST [facility] Total Protein 7.5 6.4 - 8.3 gm/dL 07/21/2024 8:02 PM EST [facility] Bili Total 0.3 0.2 - 1.4 mg/dL 07/21/2024 8:02 PM EST [facility] ALT 20 <=41 U/L 07/21/2024 8:02 PM EST [facility] AST 17 <=40 U/L 07/21/2024 8:02 PM EST [facility] Alk Phos 66 40 - 129 U/L 07/21/2024 8:02 PM EST [facility], [facility] eGFR (CKD-EPIcr 2020) 124 >=60 mL/min/1.7 3 m2 07/21/2024 8:02 PM EST [facility] Comment:Estimated GFR was ca lculated using the CKD-EPIcr (2020) equation refit without race. The equation is recommended by the National Kidney Foundation - [place] [employer] of Nephrology Task Force. Blood VENOUS BLOOD / Unknown Venipuncture / Unknown 07/21/2024 12:20 PM EST 07/21/2024 12:20 PM EST Jeramy Todd MD CHEMISTRY ORDERABLES Final Result [facility], [address] , [address] [place] [id number] [facility] [address] [place], [place] [id number] * (ABNORMAL) POCT GLYCATED HEMOGLOBIN, TOTAL (07/21/2024 11:05 AM EST) Hemoglobin A1C 7.9(A) 4 - 6 % SEP OFFICE Lot Number SEP OFFICE Expiration Date SEP OFFICE SeriAl # SEP OFFICE 07/21/2024 11:0 5 AM EST us Jeramy Todd MD POINT OF CARE TEST ORDERAB LES Final Result [facility] OFFICE from Last 3 Months or Most Recently Relevant to Health Maintenance Insurance [facility] [facility] [facility]
== END 2025-06-16 23:59 | disposition home or self-care (01) ==
LOC: RT 10:43
PROVIDERS: PCP Family Medicine; Visit Provider Family Medicine
DX: M79.661 Pain in right lower leg (principal); M79.89 Other specified soft tissue disorders; R79.89 Other specified abnormal findings of blood chemistry; R60.0 Localized edema
CPT/HCPCS: 93971